=== PATIENT | female | born 1965 | race Caucasian/White ===

== ENCOUNTER → 2017-03-12 | Outpatient (CLI) | payer BC ==
--- NOTE | 2017-03-14 02:21 | CT ---
EXAM DESCRIPTION: Chest w/Contrast CLINICAL HISTORY: Abnormal chest x-ray COMPARISON: Chest radiograph 08/16/2014 TECHNIQUE: Axial CT images of the chest were acquired after the administration of intravenous contrast. Coronal and sagittal reconstructions were obtained. This exam was performed according to our departmental dose-optimization program which includes use of Automated Exposure Control, adjustment of the mA and/or kV according to patient size and/or use of iterative reconstruction technique. FINDINGS: Neck base: Unremarkable. Mediastinum: Unremarkable. Lymph Nodes: No lymphadenopathy. Heart and pericardium: Unremarkable. Aorta: No aneurysm or dissection. Pulmonary Artery: Unremarkable. Central Airways: Patent. Pleura: No pneumothorax or pleural effusion. Lungs: Small calcified granuloma adjacent to the right middle fissure, image 45 series 4. Calcified granuloma within the right lower lobe. No suspicious pulmonary nodules or masses. Upper abdomen: A 2.3 x 2 cm enhancing lesion is seen within the right hepatic lobe, image 61 series 2. The remainder of the upper abdomen is unremarkable. Bones and soft tissues: No acute osseous or soft tissue abnormalities. IMPRESSION: No suspicious pulmonary nodules or masses. Small calcified granulomas suggestive of prior granulomatous disease. 2 cm enhancing lesion within the right hepatic lobe. Consider contrast-enhanced MRI for further evaluation. Electronically signed by: Bradley Chu MD 03/14/2017 2:19 AM CDT
== END | disposition home or self-care (01) ==
LOC: CT 08:41
PROVIDERS: ATTEND Nurse Practitioner
DX: R91.8 Other nonspecific abnormal finding of lung field (principal)